=== PATIENT | female | born 1960 | race Caucasian/White ===

== ENCOUNTER 2022-04-18 02:36 | Inpatient (IN) ==
[2022-04-18 03:15] LABS: ABS Eosinophils 0.1 10^3/ul (0-0.6); ABS Lymphocytes 2.5 10^3/ul (1.0-4.8); ABS Monocytes 0.9 10^3/ul (0-0.8); ABS Neutrophils 7.9 10^3/ul (1.5-7.7); Eosinophil % 0.8 %; Hematocrit 42 % (35-47); Hemoglobin 14.2 g/dL (12.0-16.0); Mean Corpuscular HGB Conc 34 g/dL (31-36); Mean Corpuscular Hemoglobin 30 pg (27-31); Mean Corpuscular Volume 89 fL (80-97); Mean Platelet Volume 10.2 fL (7.4-10.4); Platelet Count 157 10^3/uL (150-450); Red Cell Distribution Width 13 % (10-15); White Blood Count 11.4 10^3/uL (3.5-10.8)
[2022-04-18 03:24] LABS: INR 1.21 (0.89-1.11)
[2022-04-18] MEDS ORDERED: Furosemide 40 mg/4 ml IV VIAL IV ONE (03:51)
[2022-04-18 04:03] LABS: Albumin 4.2 g/dL (3.2-5.2); Albumin/Globulin Ratio 1.4 (1-3); Calcium 9.1 mg/dL (8.6-10.3); Globulin 2.9 g/dL (2-4); Potassium 3.2 mmol/L (3.5-5.0); Total Protein 7.1 g/dL (6.4-8.9); eGFR CKD-EPI 85.8 (>60)
[2022-04-18] MEDS ORDERED: Potassium EFFERVES 25 meq TAB PO ONE (04:21)
[2022-04-18 04:32] LABS: High Sensitivity Troponin 1 Hr 2669 pg/mL (<15)
[2022-04-18 05:38] LABS: HDL Cholesterol 26.5 mg/dL
[2022-04-18 07:59] LABS: Magnesium 1.8 mg/dL (1.9-2.7)
[2022-04-18] MEDS ORDERED: Perflutren Lipid Microsphere 3 ML VIAL ONE (08:37)
[2022-04-18] MEDS ORDERED: Magnesium Sulfate 2 gm BAG 2 GM/50 ML BAG IVPB ONE (08:46)
[2022-04-18] MEDS ORDERED: Furosemide 40 mg/4 ml IV VIAL IV SCH (09:00)
[2022-04-18 09:56] LABS: Blood Urea Nitrogen 14 mg/dL (6-24); CO2 Carbon Dioxide 31 mmol/L (22-32); Calcium 8.9 mg/dL (8.6-10.3); Chloride 97 mmol/L (101-111); Glucose 145 mg/dL (70-100); Magnesium 1.9 mg/dL (1.9-2.7); Sodium 136 mmol/L (135-145); Total Iron Binding Capacity 472 mcg/dL (250-450); Transferrin 337 mg/dL (203-362); eGFR CKD-EPI 85.8 (>60)
[2022-04-18 09:59] LABS: Anion Gap 8 mmol/L (2-11)
[2022-04-18 10:14] LABS: Ferritin 53.6 ng/mL (11-307)
[2022-04-18 11:06] LABS: Direct Bilirubin Redraw 0.2 mg/dL (0.03-0.18); Potassium Redraw 3.2 mmol/L (3.5-5.0)
[2022-04-18] MEDS ORDERED: Potassium Chlor 20 meq TAB.ER PO ONE (13:15)
[2022-04-18] MEDS: Furosemide 40 mg/4 ml IV VIAL IV SCH (17:20)
[2022-04-18] MEDS: Polyethylene Glycol 3350 17 GM PACKET PO PRN (17:54)
[2022-04-19 06:15] LABS: ABS Basophils 0.1 10^3/ul (0-0.2); ABS Eosinophils 0.1 10^3/ul (0-0.6); ABS Lymphocytes 2.2 10^3/ul (1.0-4.8); ABS Monocytes 0.7 10^3/ul (0-0.8); ABS Neutrophils 5.3 10^3/ul (1.5-7.7); Eosinophil % 1.3 %; Hematocrit 41 % (35-47); Lymphocyte % 25.8 %; Mean Corpuscular HGB Conc 34 g/dL (31-36); Mean Corpuscular Hemoglobin 30 pg (27-31); Mean Corpuscular Volume 89 fL (80-97); Mean Platelet Volume 10.9 fL (7.4-10.4); Nucleated Red Blood Cells % 0.1; Platelet Count 158 10^3/uL (150-450); Red Blood Count 4.64 10^6 /uL (3.70-4.87); Red Cell Distribution Width 14 % (10-15); White Blood Count 8.4 10^3/uL (3.5-10.8)
[2022-04-19 06:36] LABS: Calcium 8.7 mg/dL (8.6-10.3); Magnesium 2.2 mg/dL (1.9-2.7); Potassium 3.5 mmol/L (3.5-5.0); eGFR CKD-EPI 73.3 (>60)
[2022-04-19] MEDS ORDERED: Potassium Chlor 20 meq TAB.ER PO ONE (07:42)
[2022-04-19] MEDS: Furosemide 40 mg/4 ml IV VIAL IV SCH ×2 (10:10→20:57)
[2022-04-19] MEDS ORDERED: Magnesium Hydroxide LIQ 30 ML UDC PO ONE (10:12)
[2022-04-19] MEDS ORDERED: Senna TAB 8.6 mg TAB PO ONE (10:12)
[2022-04-19] MEDS ORDERED: Enoxaparin 40 MG/0.4 ML SYR SUBCUT SCH (18:00)
[2022-04-20 09:16] LABS: Magnesium 2.4 mg/dL (1.9-2.7); Potassium 3.9 mmol/L (3.5-5.0); eGFR CKD-EPI 61.5 (>60)
[2022-04-20] MEDS: Furosemide 40 mg/4 ml IV VIAL IV SCH (09:17)
[2022-04-20] MEDS: Polyethylene Glycol 3350 17 GM PACKET PO PRN (09:30)
[2022-04-20 16:09] VITALS: BP 143/82
== END 2022-04-20 17:17 | disposition left against medical advice (07) | DRG 280 ==
LOC: ED 02:36 → EDHOLD 04:46 → SUATTDRO 04:46 → EDHOLD 11:49 → MEDTELE 12:41
PROVIDERS: ADMIT Student in an Organized Health Care Education/Training Program; ATTEND Internal Medicine